=== PATIENT | female | born 1970 | race African-American/Black ===

== ENCOUNTER 2021-06-27 10:16 | Emergency (ER) | payer MEDICARE, MEDICAID ==
[~2021-06-27] VITALS: Ht 167.6 cm; Wt 121.0 kg
[2021-06-27 10:29] VITALS: BP 147/78
[2021-06-27] MEDS ORDERED: CEPH500T MT (11:11)
== END 2021-06-27 11:34 | disposition home or self-care (01) ==
LOC: ER 10:16
DX: L02.31 Cutaneous abscess of buttock (principal)
CPT/HCPCS: 99281; 99283